=== PATIENT | male | born 1975 | race Caucasian/White ===

== ENCOUNTER → 2021-07-22 10:27 | Outpatient (BNVA) | payer OTHER, SELFPAY | PROVIDERS: Family Provider Nurse Practitioner Family; PCP Family Medicine; Visit Provider Family Medicine | DX: I10 Essential (primary) hypertension (principal); Z13.220 Encounter for screening for lipoid disorders; Z13.6 Encounter for screening for cardiovascular disorders; D69.9 Hemorrhagic condition, unspecified; Z11.4 Encounter for screening for human immunodeficiency virus [HIV]; Z11.59 Encounter for screening for other viral diseases; Z76.89 Persons encountering health services in other specified circumstances | CPT/HCPCS: 80053; 80061; 85025; 86705; 86706; 86803; 87340; 87806 ==

== ENCOUNTER → 2022-05-29 10:56 | Outpatient (BNVA) | payer OTHER, SELFPAY | PROVIDERS: Family Provider Nurse Practitioner Family; PCP Family Medicine; Visit Provider Emergency Medicine | DX: M16.0 Bilateral primary osteoarthritis of hip (principal); G89.29 Other chronic pain | CPT/HCPCS: 73502 ==

== ENCOUNTER → 2022-09-18 07:53 | Outpatient (BNVA) | payer OTHER, SELFPAY | PROVIDERS: Family Provider Nurse Practitioner Family; PCP Family Medicine; Visit Provider Student in an Organized Health Care Education/Training Program | DX: M25.552 Pain in left hip (principal); G89.29 Other chronic pain; Z71.89 Other specified counseling | CPT/HCPCS: 77002 ==

== ENCOUNTER → 2022-10-15 08:51 | Outpatient (BNVA) | payer OTHER, SELFPAY | PROVIDERS: Family Provider Nurse Practitioner Family; PCP Family Medicine; Visit Provider Student in an Organized Health Care Education/Training Program | DX: M17.0 Bilateral primary osteoarthritis of knee | CPT/HCPCS: 73560; 73565 ==

== ENCOUNTER 2022-11-11 14:57 | Outpatient (CLI) | payer OTHER, SELFPAY | END 2022-11-11 14:58 | disposition home or self-care (01) | LOC: SPT 14:58 | PROVIDERS: Family Provider Nurse Practitioner Family; PCP Family Medicine; Visit Provider Student in an Organized Health Care Education/Training Program | DX: Z46.89 Encounter for fitting and adjustment of other specified devices (principal); M25.561 Pain in right knee; M25.562 Pain in left knee | CPT/HCPCS: 97760; L1851 ==

== ENCOUNTER → 2022-12-10 09:41 | Outpatient (BNVA) | payer OTHER, SELFPAY | PROVIDERS: Family Provider Nurse Practitioner Family; PCP Family Medicine; Visit Provider Physician Assistant | DX: M16.12 Unilateral primary osteoarthritis, left hip | CPT/HCPCS: 73502 ==

== ENCOUNTER → 2023-02-19 08:38 | Outpatient (BNVA) | payer OTHER, SELFPAY | PROVIDERS: Family Provider Nurse Practitioner Family; PCP Family Medicine; Visit Provider Student in an Organized Health Care Education/Training Program | DX: M25.552 Pain in left hip (principal); G89.29 Other chronic pain; Z71.89 Other specified counseling | CPT/HCPCS: 77002 ==

== ENCOUNTER → 2023-04-08 09:55 | Outpatient (BNVA) | payer OTHER, SELFPAY | PROVIDERS: Family Provider Nurse Practitioner Family; PCP Family Medicine; Visit Provider Student in an Organized Health Care Education/Training Program | DX: M17.0 Bilateral primary osteoarthritis of knee | CPT/HCPCS: 73560; 73565 ==

== ENCOUNTER 2023-04-08 14:16 | Outpatient (CLI) | payer OTHER, SELFPAY | END 2023-04-08 14:17 | disposition home or self-care (01) | LOC: SPT 14:16 | PROVIDERS: Family Provider Nurse Practitioner Family; PCP Family Medicine; Visit Provider Student in an Organized Health Care Education/Training Program | DX: Z46.89 Encounter for fitting and adjustment of other specified devices (principal); M17.11 Unilateral primary osteoarthritis, right knee; M17.12 Unilateral primary osteoarthritis, left knee | CPT/HCPCS: 97760; L1812 ==

== ENCOUNTER → 2023-07-02 09:00 | Outpatient (BNVA) | payer OTHER, SELFPAY | PROVIDERS: Family Provider Nurse Practitioner Family; PCP Family Medicine; Visit Provider Student in an Organized Health Care Education/Training Program | DX: M16.12 Unilateral primary osteoarthritis, left hip (principal); M25.551 Pain in right hip | CPT/HCPCS: 73502; 77002 ==

== ENCOUNTER → 2023-11-04 09:51 | Outpatient (BNVA) | payer OTHER, SELFPAY | PROVIDERS: Family Provider Nurse Practitioner Family; PCP Family Medicine; Visit Provider Student in an Organized Health Care Education/Training Program | DX: M25.551 Pain in right hip (principal); M16.12 Unilateral primary osteoarthritis, left hip | CPT/HCPCS: 73523 ==

== ENCOUNTER 2023-12-06 10:28 | Outpatient (CLI) | payer OTHER, SELFPAY ==
[2023-12-06 10:47] LABS: Basophils # 0.1 10^3/uL (0.0-0.1); Eosinophils # 0.1 10^3/uL (0.0-0.8); Eosinophils % 1.4 %; Hematocrit 46.1 % (37-53); Lymphocytes # 1.8 10^3/uL (0.8-4.8); Mean Corpuscular HGB Conc 34.3 g/dL (30-55); Mean Corpuscular Hemoglobin 31.7 pg (27-33); Mean Corpuscular Volume 92.4 fl (82-101); Mean Platelet Volume 10.6 fL (7.4-10.4); Monocytes # 0.6 10^3/uL (0.2-0.9); Monocytes % 8.7 %; Neutrophils # 4.48 10^3/uL (1.8-7.7); Neutrophils % 63.5 %; Nucleated Red Blood Cells % 0 %; Platelet Count 269 10^3/cmm (157-399); Red Blood Count 4.99 10^6/uL (3.85-5.65); Red Cell Distribution Width 11.7 % (12.1-15.1); White Blood Count 7.05 10^3/uL (3.29-11.43)
[2023-12-06 11:03] LABS: Alanine Aminotransferase 48 U/L (0-41); Albumin Level 4.2 g/dL (3.5-5.2); Alkaline Phosphatase 75 U/L (40-130); Anion Gap 14.3 (5-19); Aspartate Amino Transferase 22 U/L (0-40); Blood Urea Nitrogen 13 mg/dL (6-20); Calcium 9.3 mg/dL (8.5-10.5); Carbon Dioxide 24 mmol/L (22-29); Chloride 101 mmol/L (98-107); Globulin 2.4 g/dL (1.3-4.6); Glomerular Filtration Rate 90.8 mL/min (90-130); Glucose 129 mg/dL (65-115); Osmolality Calculated 282 mOsm/kg (285-295); Potassium 4.3 mmol/L (3.5-5.1); Sodium 135 mmol/L (136-145); Total Bilirubin 0.4 mg/dL (0.15-1.2); Total Protein 6.6 g/dL (6.6-8.7)
== END 2023-12-06 10:29 | disposition home or self-care (01) ==
LOC: LAB 10:32
PROVIDERS: Family Provider Nurse Practitioner Family; PCP Family Medicine; Visit Provider Student in an Organized Health Care Education/Training Program
DX: Z01.818 Encounter for other preprocedural examination (principal)
CPT/HCPCS: 36415; 80053; 85025

== ENCOUNTER 2023-12-13 12:55 | Outpatient (CLI) | payer OTHER, SELFPAY ==
--- NOTE | 2023-12-13 13:00 | CT_ITS ---
WS: [id number] CT LEFT hip, noncontrast HISTORY: LEFT TOTAL HIP ARTHROPLASTY TECHNIQUE: Protocol for [facility] total hip replacement has been obtained. DLP: 853.72 mGy COMPARISON: None available. No destructive bone lesions. Mild narrowing of the hip joints bilaterally. Suspect mild bilateral CAM deformities and mild osteophytic ridging around the acetabulum. Normal alignment at the knee joints. No destructive bone process. No significant effusions. CT/CT hip [facility] [id number] IMPRESSION: CT imaging provided for [facility] robotic total LEFT hip replacement.
== END 2023-12-13 12:56 | disposition home or self-care (01) ==
LOC: RAD 12:56
PROVIDERS: Family Provider Nurse Practitioner Family; PCP Family Medicine; Visit Provider Student in an Organized Health Care Education/Training Program
DX: Z01.818 Encounter for other preprocedural examination (principal); M16.12 Unilateral primary osteoarthritis, left hip
CPT/HCPCS: 73700; 81003

== ENCOUNTER 2023-12-27 11:07 | Observation (INO) | payer OTHER, SELFPAY ==
[2023-12-27] VITALS (20 sets, daily range): BP systolic 103–154; BP diastolic 60–107; PULSE 58–77; RESP 14–18; TEMP 36.1–36.5; O2SAT 93–99; BMI 38.6; BMI 37.6
[2023-12-27] MEDS: lactated ringers 500 ML IV (06:24)
--- NOTE | 2023-12-27 06:37 | ANES.PREANE2 ---
Pre-Anesthetic Assessment Height/Weight: Height 1.85 m Weight 132.903 kg Temp Pulse Resp BP Pulse Ox O2 Del Method 97 F L 60 18 154/107 96 Room Air 12/27/23 06:03 12/27/23 06:03 12/27/23 06:03 12/27/23 06:03 12/27/23 06:03 12/27/23 06:03 Operation Date: 12/27/23 07:00 Proposed Procedures p Toni Robot Total Hip Arthroplasty posterior approach(Left) - Freddy Hardy DO Familial anesthetic complications: Panic attack upon awakening Was Beta Cydney taken within 24 hours: N/A Was Clonidine taken within 24 hours: N/A Last intake: Intake Last Liquid Date 12/26/23 Last Liquid Time 23:00 Last Solid Date 12/26/23 Last Solid Time 21:00 Social No alcohol and No tobacco former smoker Exam alert, oriented x 3, clear to auscultation bilaterally and regular rate & rhythm Airway Mallampati: Class IV Dentition: other (no teeth) CV/HEM Hypertension Metabolic Morbid Obesity Anesthetic Plan ASA status: 3 Anesthesia: Regional (specify below) (spinal) Risk of > 500 ml blood loss (7ml/kg in children): Yes, adequate IV access and fluids planned Medications/Allergies Home Medications Medication Instructions Recorded Confirmed Last Taken Type Professor Of Biology Brace #2 ea 10/15/22 11/04/23 Unknown Rx rtgkpph-ciibhyzklxqqb-emwrxuen 250 4 tab PO Q6H PRN Headache 02/23/23 12/24/23 12/21/23 History mg-250 mg-65 mg tablet (Excedrin Migraine) economy knee braces bilateral #1 ea 04/08/23 11/04/23 Unknown Rx Allergies Allergy/AdvReac Type Severity Reaction Status Date / Time No Known Allergies Allergy Verified 12/24/23 09:02 [facility] Anesthesia Medical History Smoking Chronic left hip pain COVID Hypertension Surgical History History of sinus surgery No pertinent past surgical history Family History Father CAD (coronary artery disease) Diabetes Grandmother Stroke Social History Smoking and tobacco/nicotine status: current every day tobacco/nicotine user Alcohol intake: former Substance/Drug Use: never Adopted: No Data Anesthesia Cardiac Studies: No Data to Display
[2023-12-27] MEDS: scopolamine 1.5 Patch 1 PATCH TRANSDERMA (06:40)
[2023-12-27] MEDS: ketorolac 30 mg/mL INJ IVP (06:40)
[2023-12-27] MEDS: acetaminophen 1,000 MG/100 ML PIGGYBACK 400 MG IV ×3 (06:41→20:21)
--- NOTE | 2023-12-27 06:58 | W.PM.OPSFHP ---
Same Day Surgery H&P Indication for Procedure/HPI DATE OF PROCEDURE: December 27, 2023 CHIEF COMPLAINT/INDICATIONFOR SURGICAL PROCEDURE: Left hip DJD PREOP DIAGNOSIS: Left hip DJD PLANNED PROCEDURE: Operation Date: 12/27/23 07:00 Proposed Procedures p Toni Robot Total Hip Arthroplasty posterior approach(Left) - Freddy Hardy DO Medications/Allergies* Home Medications Medication Instructions Recorded Confirmed Type skdwssq-wvtulqujmqtso-ocqxrqce 250 4 tab PO Q6H PRN Headache 02/23/23 12/24/23 History mg-250 mg-65 mg tablet (Excedrin Migraine) Allergies/Adverse Reactions Allergy/AdvReac Type Severity Reaction Status Date / Time No Known Allergies Allergy Verified 12/24/23 09:02 Pertinent History/Comorbid Conditions* Medical History (Updated 07/02/23 @ 09:32 by Freddy Haryd DO) Smoking Chronic left hip pain COVID Hypertension Surgical History (Updated 07/22/21 @ 10:20 by Marian Jamison MD) History of sinus surgery No pertinent past surgical history Family History (Updated 07/22/21 @ 09:38 by Grazyna Chun CMA) Diabetes Father CAD (coronary artery disease) Father Stroke Grandmother Social History Smoking and tobacco/nicotine status: current every day tobacco/nicotine user Alcohol intake: former Substance/Drug Use: never Adopted: No Pertinent Exam Findings alert, oriented x 3, operative site marked and procedure specific exam findings Please refer to detailed orthopedic examination on 11/04/2023: Left hip exam: Pain with hip flexion and internal rotation IR less than 5 degrees ER 10 degrees Tenderness to palpation of the groin. Tenderness to palpation over the lateral trochanter. Able to perform straight leg raise, negative straight leg raise test Able to flex and extend knee with normal range of motion no tenderness to palpation. Recommendations Surgery/Procedure today Other Plans: Patient is here today as clear the preoperative clearance process and ready proceed with a left total hip arthroplasty Toni robotic assisted plan through a posterior approach. He underwent the preoperative process and cleared. Patient understands the ins and outs of the procedure, the risk benefits complication alternatives of surgery and through shared decision-making elects proceed with surgical intervention. All questions answered at this time. Will proceed with surgery today. Coding Level of Care Code Acute Code for [facility] Fwd
[2023-12-27] MEDS: sodium chloride 0.9% 1,000 ML 30 ML IV (07:00)
[2023-12-27] MEDS: ceFAZolin 3,000 MG in sodium chloride 0.9% (plus) 100 ML 200 MG IV (07:00)
[2023-12-27 07:02] LABS: Basophils # 0.1 10^3/uL (0.0-0.1); Eosinophils # 0.2 10^3/uL (0.0-0.8); Eosinophils % 2.2 %; Hematocrit 45.5 % (37-53); Lymphocytes # 2.3 10^3/uL (0.8-4.8); Lymphocytes % 33.4 %; Mean Corpuscular HGB Conc 33.6 g/dL (30-55); Mean Corpuscular Hemoglobin 31.9 pg (27-33); Mean Platelet Volume 10.8 fL (7.4-10.4); Monocytes # 0.7 10^3/uL (0.2-0.9); Monocytes % 10.3 %; Neutrophils # 3.55 10^3/uL (1.8-7.7); Neutrophils % 52.8 %; Nucleated Red Blood Cells % 0 %; Platelet Count 270 10^3/cmm (157-399); Red Blood Count 4.79 10^6/uL (3.85-5.65); Red Cell Distribution Width 11.9 % (12.1-15.1); White Blood Count 6.73 10^3/uL (3.29-11.43)
[2023-12-27 07:11] LABS: Anion Gap 12.5 (5-19); Blood Urea Nitrogen 13 mg/dL (6-20); Calcium 8.8 mg/dL (8.5-10.5); Carbon Dioxide 25 mmol/L (22-29); Chloride 104 mmol/L (98-107); Creatinine Clr Calc Pharmacy 145.0989; Glomerular Filtration Rate 90.4 mL/min (90-130); Glucose 133 mg/dL (65-115); Osmolality Calculated 286 mOsm/kg (285-295); Potassium 4.5 mmol/L (3.5-5.1); Sodium 137 mmol/L (136-145)
[2023-12-27] MEDS: tranexamic acid 1,000 mg/10mL SDV 1000 MG IV (07:49)
[2023-12-27] MEDS: vancomycin 1,000 MG SDV 2000 MG XX (08:32)
[2023-12-27] MEDS: ceFAZolin 2,000 mg SDV 3000 MG IVP (10:44)
--- NOTE | 2023-12-27 10:57 | W.PM.BPON ---
Date of Procedure: [December 27, 2023] Surgeon: [Dr. Hardy DO] Ross Lift Operator(s): [Darrian Hardy PA-C] Procedure(s) performed: [Left hip total arthroplasty with Toni robotic assist.] Findings of the procedure(s): [Left hip degenerative joint disease procedure went well and as planned] Estimated blood loss: [500 mL] Specimen(s) removed: [Femoral head] Post-operative diagnosis: [Left hip degenerative joint disease.]
--- NOTE | 2023-12-27 10:58 | PM.PACU ---
PACU note Narrative: Patient is a 48-year-old male that just underwent a left total hip arthroplasty. Pt transferred to PACU in stable condition. Dressing is dry. pt is awake and alert. pt can wiggle toes and plantarflex and dorsiflex foot. Distal pulses are palpable toes are warm and well-perfused. Cap refill is normal and under 2 seconds. Sensation to foot is intact. Pain is controlled. Exam: awake Disposition: admitted
--- NOTE | 2023-12-27 11:11 | XRR_ITS ---
PROCEDURE INFORMATION: Exam: XR Left Hip Exam date and time: 12/27/2023 11:15 AM Age: 48 years old Clinical indication: Device placement; Other: Left samia; Prior surgery; Surgery date: Post-operative (0-2 days); Additional info: Post op left samia, do in pacu TECHNIQUE: Imaging protocol: Radiologic exam of the left hip. Views: 2 or 3 views hip with pelvis when performed. COMPARISON: CT hip LT [facility] [id number] 12/13/2023 12:59 PM FINDINGS: Bones/joints: There are postoperative changes status post left hip replacement. Components appear to be in anatomic alignment. No fracture is noted. No dislocation is noted. Bony mineralization is normal. Soft tissues: Unremarkable. XR/XR hip LT 2-3V wo/w pel* [id number] IMPRESSION: 1. Postoperative changes status post left hip replacement.
--- NOTE | 2023-12-27 11:20 | PM.OP ---
Operative Report Date of procedure: December 27, 2023 Surgeon: Freddy Hardy DO Ammunition Storekeeper: Darrian Hardy PA-C: PA was necessary for assistance in this case with leg positioning, hip reductions, retraction and protection of neurovascular structures as well as assistance in implantation, wound closure, and dressing application. Procedure: Preop Diagnosis?Left hip degenerative joint disease Post-op diagnosis: Left hip degenerative joint disease Procedure done: Left total hip arthroplasty?robotic assisted Toni?posterior?approach Implants: [place] total hip arthroplasty implants 60 mm cluster hole acetabular shell 6.5 mm x (15mm) acetabular screw Alpha code G MDM cementless metal liner [place] Insignia Femoral stem size #6 high offset Alpha code MDM +4 mm head Surgeon: Freddy Hardy DO Estimated blood loss: 500 mL IV fluids: 1700 mL Urine output: 800 mL Complications: None Condition: stable Disposition: floor Brief History: Patient's been seen and worked up by myself in the outpatient setting and findings consistent with Left hip degenerative joint disease. pt has failed conservative treatment this is causing severe pain and decreased mobility. We talked about his treatment options as far as nonoperative and operative intervention. pt ultimately through shared decision-making would like to proceed with a Left total hip arthroplasty. we detailed out risk benefits complications alternatives to surgical and nonsurgical treatment options. Understanding pt risk for surgery pt elects to proceed with Left total hip arthroplasty robotic assisted Toni utilizing a?posterior?approach. All questions answered. pt elects proceed with surgery today and consent obtained in PACU. Procedure: Patient was seen evaluate in preoperative holding area.? Consent was reviewed and signed with patient.? Correct extremity was then marked.? Patient seen evaluate by anesthesia department once cleared for surgery pt was taken back to the operative suite.? Patient underwent spinal anesthesia per the anesthesia department.? This point time pt was then placed on the operative suite and table.? Pt was then placed in lateral decubitus patient worked with the Left hip up.? Patient was secured in the lateral decubitus position with pegboard. All bony prominences well-padded he was properly secured to the bed.? At this point time the Left lower extremity was then prepped and draped in standard orthopedic fashion with care not to drape out the iliac wing for pelvic array placement.? Final timeout performed.? Patient received appropriate preoperative antibiotics. Started off with establishment of my pelvic array pins.? A small longitudinal incision was made directly over the iliac wing.? Sharp scalpel excision through skin and subcutaneous tissue directly onto bone.? Next I then loaded my pelvic pin.? This was then drilled through the iliac wing corridor with excellent fixation.? Next I then loaded the guide which was placed directly onto bone and then subsequently placed 2 more pins to secure fixation.? Next the pelvic array was then sent had excellent visualization with the Toni robot and was secured. EKG pad was placed on the distal lateral aspect of the femur and sterile aseptic technique and use as my distal reference point. Next I proceeded with my standard?posterior?approach.? Sharp scalpel through skin and subcutaneous tissue this was centered over the greater trochanter.? I then utilized a Espino elevator over the gluteus joão fascia.? Next the fascia was then split longitudinally with bipolar electrocautery.? Next a Charnley retractor was then placed.? All bone was then placed into the abductors.? A standard full-thickness release of the piriformis and the short external rotators along with the capsule to grade 1 full thick sleeve for later repair was then placed straight down to the lesser trochanter.? Lesser trochanter was then subsequently identified.? Prior to dislocating the hip we then placed our greater trochanter femur checkpoint.? We marked our appropriate checkpoint for referencing on pelvic array.? At this point in time we then established both of our checkpoints as well as referencing for leg lengths I utilized the EKG pad as my distal reference point. The legs were marked and traced to have appropriate position on the drapes to allow for accurate reading.? Preoperative leg lengths set. Once this was then established I then proceeded with dislocation of the femoral head.? At this point Hohmann's were then placed superiorly and inferiorly along the femoral neck..? The sciatic nerve was protected throughout this case.? At this point time I then utilized the Toni robot and referencing point to reference different aspects along the femoral head and neck for my appropriate neck length.? These were referenced on the inferior mid substance as well as up into the superior shoulder of the femoral neck.? This marked my oscillating saw was used to make my femoral neck cut.? Femoral head was then removed. Next the leg was placed in appropriate position and my anterior and?posterior?acetabular retractors then placed.? Next I excised the labrum and then remove the pulvinar.? I did do a small release of the inferior capsule which was severely taut to allow for easier placement of my reamers as well as reduction.? Acetabulum was thoroughly irrigated. At this point in time keeping my retractors in place I subsequently loaded up the [employer] robot for my acetabular reaming.?? Next I then set my 60 reamer under the [employer] robot and subsequently held this with appropriate preplanned preop planned version of 40 degrees of abduction angle as well as 20 degrees of anteversion.? This preoperative plan was then subsequently made to accommodate for ranges of motion of impingement?that was assessed preoperatively utilizing the [employer] robotic software technology. The small adjustments of abduction and anteversion accommodated no anterior hip impingement with the hip flexed at 90 degrees. I then subsequently reamed this to the appropriate depth with 60 reamer.? We opened up the acetabular shell clusterhole of the 60 mm [place] this was then loaded onto my impacting system and then I subsequently impacted this to appropriate depth.? This was then removed from the robot and I used the Toni probe at the center to confirm on the CT scan?that this was down on bone which it was.? Next I then drilled and placed 1 acetabular screws with excellent fixation these were drilled and measured to be 15mm this was in the?posterior?superior aspect of the acetabulum had excellent bite and fixation.? The cup was solid and had excellent press-fit fixation. next, opened the alpha code G MDM cementless liner then subsequently placed in appropriate position and impacted into place.? I then placed a sponge into the acetabulum to protect the polyethylene while my femur preparation was performed.? At this point time I then utilized a small rongeur to clear off the shoulder of the femoral neck to clear out the soft tissue envelope for my box osteotome.? Next box osteotome was used a canal finder was placed as well as a lateral lysing rattail rasp.? Once I was appropriately lateralized I then sequentially broached up to a size 6 femoral stem.? This was impacted to appropriate depth and flushed with my femoral neck cut.? This point I loaded a high offset with +0mm neck and subsequently reduced the hip.? At this point in time the hip was taken through range of motion before evaluating with the robot on leg lengths.? Patient appeared to have room to increase on leg lengths clinically.? The hip was taken through range of motion and had excellent stability with hip flexion and internal rotation with no evidence of instability had an slightly increased shuck.? This point time utilized the Toni probe from our femur checkpoint down to her distal checkpoint. Satisfied with this trial implants, at this point I dislocated the hip and then called for my final implants with excellent stability in all planes.? Opened up a size 6 femoral insignia stem high offset.? My trials were then removed and then subsequently impacted my [place] Insign[employer] stem high offset to the same level.? This point in time I trialed up to a +4 mm neck length which helped match with Toni robotic assistance had appropriate leg lengths comparative to the contralateral hip and this was confirmed clinically as well as had excellent stability I felt as though this was best combination with leg lengths being equal as well as with stability and elected for the final +4 mm MDM femoral head. Final MDM femoral head component was then opened and the trunnion was dried and this was impacted with excellent fixation and the hip was subsequently reduced.? We measured our final leg lengths which were appropriate patient had excellent stability in all ranges of motion.? This point time a robotic pins and checkpoints were removed.? I remove the femur checkpoint as well as my pelvic array and iliac wing pins.? Appropriate counts were then made.? This point time thoroughly irrigated the wound bed with pulse lavage.? Vancomycin powder was then sprinkled into the wound bed.? I then performed a standard capsular and external rotator repair utilizing #5 Ethibond and this was tied and repaired through bone tunnels hip, sciatic nerve was protected throughout this portion of the case. Was then kept in abduction external rotation and subsequently closed the fascial layer with Ethibond suture as well as running strata fix suture.? I then closed the deep subcutaneous layer as well as superficial subcutaneous layer with running strata fix suture as well as 3-0strata fix for skin.? Prineo glue dressing was then placed over the skin.? I then irrigated the pelvic array pin site.? There is were then closed with interrupted 0, 2-0 vicryl suture and Monocryl as well as Prineo glue for the skin.? Incisions were then covered with maureen and Silverlon dressing.? Patient was awakened from anesthesia and taken to PACU in stable condition Disposition: Patient taken to PACU in stable condition.? Patient will receive appropriate discharge instructions as well as DVT prophylaxis and pain medication.? Patient will be admitted to the floor for observation should be evaluated by the internal medicine team for medical management.? Patient received appropriate DVT prophylaxis as well as pain medication PT/OT weightbearing as tolerated Left lower extremity with?posterior?hip precautions, Postoperative Abx and TXA.? We will follow-up with patient in the office in 2 weeks.? Patient understands agrees with current plan.? All questions answered.
--- NOTE | 2023-12-27 11:35 | ANE.PACU2 ---
Inpatient post-anesthesia follow up: Airway intact: Yes Vital signs: Temperature 97.5 F Pulse Rate 58 Respiratory Rate 17 Blood Pressure 137/81 Pulse Oximetry 95 Oxygen Delivery Me thod Room Air Oxygen Flow Rate 6 Fraction of Inspir ed Oxygen Hydration adequate: Yes Nausea and vomiting: No Pain level: 1 Mental status: Baseline
[2023-12-27] MEDS: lactated ringers 1,000 ML 100 ML IV (12:42)
[2023-12-27] MEDS: ketorolac 30 mg/mL INJ 15 MG IVP ×2 (12:43→20:29)
[2023-12-27] MEDS: chlorhexidine gluconate 0.12% Btl 473 mL 30 ML MUCOUS MEM ×3 (12:50→20:22)
[2023-12-27] MEDS: oxyCODONE 5 mg IR Tab/Cap PO ×2 (12:59→17:55)
[2023-12-27] MEDS: tranexamic acid 1,000 MG/100 ML PREMIX 600 MG IV (14:12)
[2023-12-27] MEDS: TRAMadol 50 mg Tablet PO (15:43)
[2023-12-27] MEDS: ceFAZolin 3,000 MG in sodium chloride 0.9% (100 ml) 100 ML 200 MG IV ×2 (15:45→22:43)
[2023-12-27] MEDS: calcium carb-vit d 600mg/400unit 1 Tablet 1 EACH PO (17:55)
[2023-12-27] MEDS: mupirocin oint 22 gm 1 APPLIC NASAL (17:55)
[2023-12-27] MEDS: iron polysaccharide complex 150 mg Capsule PO (17:55)
[2023-12-27] MEDS: sennosides-docusate Tablet 2 TAB PO (17:55)
[2023-12-28] VITALS (8 sets, daily range): BP systolic 112–148; BP diastolic 62–70; PULSE 69–83; RESP 16–20; TEMP 36.7–37.5; O2SAT 94–96
[2023-12-28] MEDS: oxyCODONE 5 mg IR Tab/Cap PO ×3 (01:38→12:25)
[2023-12-28] MEDS: acetaminophen 1,000 MG/100 ML PIGGYBACK 400 MG IV (03:35)
[2023-12-28] MEDS: ketorolac 30 mg/mL INJ 15 MG IVP (03:41)
[2023-12-28 05:57] LABS: Basophils % 0.4 %; Eosinophils # 0.1 10^3/uL (0.0-0.8); Eosinophils % 1.2 %; Hematocrit 34.1 % (37-53); Lymphocytes # 1.7 10^3/uL (0.8-4.8); Lymphocytes % 17.8 %; Mean Corpuscular HGB Conc 32.8 g/dL (30-55); Mean Corpuscular Hemoglobin 31.3 pg (27-33); Mean Corpuscular Volume 95.3 fl (82-101); Mean Platelet Volume 11.1 fL (7.4-10.4); Monocytes # 0.8 10^3/uL (0.2-0.9); Monocytes % 8.2 %; Neutrophils # 6.67 10^3/uL (1.8-7.7); Nucleated Red Blood Cells % 0 %; Platelet Count 243 10^3/cmm (157-399); Red Blood Count 3.58 10^6/uL (3.85-5.65); Red Cell Distribution Width 11.9 % (12.1-15.1); White Blood Count 9.27 10^3/uL (3.29-11.43)
[2023-12-28 06:13] LABS: Anion Gap 13.3 (5-19); Blood Urea Nitrogen 17 mg/dL (6-20); Calcium 8.3 mg/dL (8.5-10.5); Carbon Dioxide 24 mmol/L (22-29); Chloride 104 mmol/L (98-107); Creatinine Clr Calc Pharmacy 132.3716; Glomerular Filtration Rate 80.1 mL/min (90-130); Glucose 128 mg/dL (65-115); Osmolality Calculated 287 mOsm/kg (285-295); Potassium 4.3 mmol/L (3.5-5.1); Sodium 137 mmol/L (136-145)
[2023-12-28] MEDS: ceFAZolin 3,000 MG in sodium chloride 0.9% (100 ml) 100 ML 200 MG IV (06:14)
[2023-12-28] MEDS: aspirin 325 mg Tablet PO (07:47)
[2023-12-28] MEDS: multivitamin therapeutic Tablet 1 TAB PO (07:47)
[2023-12-28] MEDS: iron polysaccharide complex 150 mg Capsule PO (07:47)
[2023-12-28] MEDS: calcium carb-vit d 600mg/400unit 1 Tablet 1 EACH PO (07:47)
[2023-12-28] MEDS: sennosides-docusate Tablet 2 TAB PO (07:47)
[2023-12-28] MEDS: mupirocin oint 22 gm 1 APPLIC NASAL (07:50)
--- NOTE | 2023-12-28 10:00 | P.CONIM_ITS ---
Providers/Reason For Consult 2 Consulting Physician/Specialty*: Hospitalist Reason for Consult*: Postop care Attending Physician: Freddy Hardy DO Primary Care Provider: Marian Jamison MD History of Present Illness History of Present Illness Christopher Cervantes is a 48 year old male status post left hip arthroplasty, hospitalist service has been requested for postop management. 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, he endorses pain on exertion otherwise not at rest, hemodynamic stable after surgery, not requiring oxygen, afebrile Review of Systems 2 Const: Denies: fever(s) Eyes: Denies: change in vision ENMT: Denies: throat pain Musc: Reports: extremity pain Medications/Allergies Home Medications Medication Instructions Recorded Confirmed Last Taken Type Tripe Finisher Brace #2 ea 10/15/22 12/27/23 Unknown Rx ssrkqot-deseyhfteulij-jetdzusc 250 4 tab PO Q6H PRN Headache 02/23/23 12/24/23 12/21/23 History mg-250 mg-65 mg tablet (Excedrin Migraine) economy knee braces bilateral #1 ea 04/08/23 12/27/23 Unknown Rx Allergies Allergy/AdvReac Type Severity Reaction Status Date / Time No Known Allergies Allergy Verified 12/24/23 09:02 Current Medications Generic Name Dose Route Start Last Admin Trade Name Freq PRN Reason Stop Dose Admin Chlorhexidine Gluconate 30 ml 12/27/23 13:00 12/27/23 12:50 Chlorhexidine Gluconate 0.12% Btl 473 Ml MUCOUS MEM 30 ml QID ANKITA Administration Lactated Ringer's 1,000 mls @ 100 mls/hr 12/27/23 11:55 12/27/23 12:42 Lactated Ringers IV 100 mls/hr .Q10H ANKITA Administration Acetaminophen 1,000 mg in 100 mls @ 400 mls/hr 12/27/23 11:55 12/27/23 13:04 Acetaminophen IV 12/28/23 04:09 Infused Q8H ANKITA Infusion Ketorolac Tromethamine 15 mg 12/27/23 11:55 12/27/23 12:43 Ketorolac 30 Mg/Ml Inj IVP 15 mg Q6H PRN Administration MODERATE TO SEVERE PAIN Oxycodone HCl 5 mg 12/27/23 11:55 12/27/23 12:59 Oxycodone 5 Mg Ir Tab/Cap PO 5 mg Q4H PRN Administration MODERATE PAIN PFSH Acute 2 PFSH: Medical History Smoking Chronic left hip pain COVID Hypertension Surgical History History of sinus surgery No pertinent past surgical history Family History Father CAD (coronary artery disease) Diabetes Grandmother Stroke Social History Smoking and tobacco/nicotine status: current every day tobacco/nicotine user Alcohol intake: former Substance/Drug Use: never Adopted: No Vitals/I&O/Wt Last Vital Signs Temp 97.5 F L 12/27/23 11:55 Pulse 58 L 12/27/23 12:45 Resp 17 12/27/23 12:59 BP 137/81 12/27/23 12:45 Pulse Ox 95 12/27/23 12:45 O2 Del Method Room Air 12/27/23 12:45 O2 Flow Rate 6 12/27/23 11:15 12/27/23 12/27/23 12/27/23 06:59 14:59 22:59 Intake Total 100 / 100 3030 / 3030 Output Total 1300 / 1300 Balance 100 / 100 1730 / 1730 Weight last 48 hrs Weight 132.903 kg Weight 132.903 kg Physical Exam 2 Narrative: Awake and alert GCS 15 Pleasant Hemodynamically stable Morbidly obese Nonfocal neuroexam Urinary Catheter Management: Smith: Cath Placed During This Visit: yes Urinary Catheter Date of Insertion: 12/27/23 Urinary Catheter Time of Insertion: 07:22 Data 12/28/23 05:28 12/28/23 05:28 A&P Assessment and plan (1) Chronic left hip pain: (2) S/P total hip arthroplasty: Plan Hip arthroplasty Postop management Postop day 1 Patient is doing well, not requiring oxygen Afebrile Hemoglobin stable To prevent opioid-induced constipation Continue bowel regimen For DVT prophylaxis he is on therapeutic aspirin dose Full code After evaluation with PT further disposition plan will be made, patient is anticipating going home today I have told him that he has to wait for Dr. Hardy's assessment evaluation today Consult Attestations 2 Medical Necessity Statement: As per orthopedics Diagnoses Chronic left hip pain M25.552; G89.29 S/P total hip arthroplasty Z96.649
--- NOTE | 2023-12-28 10:23 | PC.CHAP ---
Pastoral Care Encounter/Spiritual Assessment Type of Contact [] Declined shuttle filler visit [] Patient/Family/Request visit [] Outpatient visit [] Follow-up visit [] Physician referral [] Code/Alert [x] Routine visit [] Staff referral [] Actively dying [] Patient sleeping [] Family support [] [] Out of room [] Palliative care [] [] Receiving care in room [] Pre-surgical visit [] Trauma [] Long length of stay [] ICU visit [] Other: Relational/Emotional Strength [x] Patient feels connected with others/family/visitors/staff [] Distress [] Loneliness/isolation [] Abandonment Spirituality of Patient [x] Person of Blanka [] Attends Cheondoism of their Blanka [x] Believes in Prayer [] Reads Bible or Cheondoism materials [] There are Spiritual issues to be addressed Band Cutter Interventions [x] Prayer [x] Active listening [] Non-anxious presence [x] Spiritual/emotional support [] Crisis/trauma care [] Spiritual counseling [] Bereavement support [] Provided bereavement packet [] Provided Bible/devotional materials [] Provided toy/stuffed animal, coloring book to patient or family member [] Provided Communion [] Anointing/[place] [] Salvation [x] Completed spiritual assessment [] Other: Impact on Illness or Injury [] Angry [] Fearful [] Anxious [] Often cries [] Exhaustion [] Unable to work [] Unable to attend sikh [] Unable to walk/stand [] Unable to read [] Unable to drive [] Unable to eat/drink [] Unable to sleep [] Unable to be with family [] Patient intubated [] Other: Summary Time spent with patient 5 min
--- NOTE | 2023-12-28 12:14 | P.DS_ITS ---
Discharge Providers Date of Admission: 12/27/23 11:07 Date of Discharge: December 28, 2023 Attending Provider at Admission: Freddy Hardy DO Attending Provider at Discharge: Freddy Hardy DO Consults: Hospitalist?Dr. 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 Once cleared by anesthesia for surgery subsequently was taken back to the operative suite underwent anesthesia per the anesthesia department and then underwent [left] total hip arthroplasty with Toni robotic assistance posterior approach without any complications. Patient was then subsequently taken back to PACU in stable condition recovering well. Once recovered, patient was then subsequently admitted to the floor postoperatively. Internal medicine was consulted for medical management assistance. Patient weightbearing as tolerated to the operative lower extremity, posterior hip precautions. PT/OT. Pain control. DVT prophylaxis. Postoperative antibiotics and TXA. dressing was change as needed. Internal medicine was on board and appreciate their medical management and assistance. Pt was determined on postoperative day [1] the patient was stable for discharge from orthopedic as well as internal medicine standpoint. Patient's labs were monitored daily. Patient will receive appropriate pain medication as well as DVT prophylaxis postoperatively. Appropriate discharge instructions as well. Patient was then discharged in stable condition. Patient will discharge home. Pt will follow-up with Orthopedics in the office in 2 weeks. Patient understands and agrees with current plan. All questions answered. Understands there is any issues or concerns and contact the office. Physical Exam Narrative: Examination of the left hip demonstrates dressings on in place clean dry and intact, patient able to tolerate logroll examination as well as able to wiggle toes plantarflex and dorsiflex ankle sensations intact to light touch distally. Distal pulses are palpable toes are warm and well-perfused compartments are soft compressible normal postoperative tenderness palpation of the left hip as well as swelling on the postoperatively appreciated. Urinary Catheter Management: Smith: Cath Placed During This Visit: yes, but has since been removed by the nurse Reason for Continuing Indwelling Catheter: Perioperative Use in Selected Surgeries Urinary Catheter Date of Insertion: 12/27/23 Urinary Catheter Time of Insertion: 07:22 Date Urinary Catheter Removed: 12/28/23 Time Urinary Catheter Discontinued: 05:00 Discharge Data Studies Completed and Pending Completed Studies During Hospitalization Category Date Time Status XR hip LT 2-3V wo/w pel* [id number] Routine Exams 12/27/23 11:11 Completed Pending at discharge Category Date Time Status Basic Metabolic Panel AM LABS Lab 12/29/23 04:00 Ordered Basic Metabolic Panel AM LABS Lab 12/30/23 04:00 Ordered Complete Blood Count w/Auto AM LABS Lab 12/29/23 04:00 Ordered Complete Blood Count w/Auto AM LABS Lab 12/30/23 04:00 Ordered Radiology Impressions Hip/Pelvis X-Ray 12/27/23 11:11 IMPRESSION: 1. Postoperative changes status post left hip replacement. Laboratory Results WBC 9.27 10^3/uL (3.29-11.43) 12/28/23 05:28 RBC 3.58 10^6/uL (3.85-5.65) L 12/28/23 05:28 Hgb 11.20 g/dL (11.27-16.99) L 12/28/23 05:28 Hct 34.1 % (37-53) L 12/28/23 05:28 MCV 95.3 fl (82-101) 12/28/23 05:28 MCH 31.3 pg (27-33) 12/28/23 05:28 MCHC 32.8 g/dL (30-55) 12/28/23 05:28 RDW 11.9 % (12.1-15.1) L 12/28/23 05:28 Plt Count 243 10^3/cmm (157-399) 12/28/23 05:28 MPV 11.1 fL (7.4-10.4) H 12/28/23 05:28 Neut % (Auto) 72.0 % 12/28/23 05:28 Lymph % (Auto) 17.8 % 12/28/23 05:28 Emmons % (Auto) 8.2 % 12/28/23 05:28 Eos % (Auto) 1.2 % 12/28/23 05:28 Baso % (Auto) 0.4 % 12/28/23 05:28 Neut # (Auto) 6.67 10^3/uL (1.8-7.7) 12/28/23 05:28 Lymph # (Auto) 1.7 10^3/uL (0.8-4.8) 12/28/23 05:28 Emmons # (Auto) 0.8 10^3/uL (0.2-0.9) 12/28/23 05:28 Eos # (Auto) 0.1 10^3/uL (0.0-0.8) 12/28/23 05:28 Baso # (Auto) 0.0 10^3/uL (0.0-0.1) 12/28/23 05:28 Nucleated RBC % (auto) 0 % 12/28/23 05:28 Nucleated RBCs # 0.0 /100WBC 12/28/23 05:28 Sodium 137 mmol/L (136-145) 12/28/23 05:28 Potassium 4.3 mmol/L (3.5-5.1) 12/28/23 05:28 Chloride 104 mmol/L (98-107) 12/28/23 05:28 Carbon Dioxide 24 mmol/L (22-29) 12/28/23 05:28 Anion Gap 13.3 (5-19) 12/28/23 05:28 BUN 17 mg/dL (6-20) 12/28/23 05:28 Creatinine 1.0 mg/dL (0.7-1.2) 12/28/23 05:28 GFR Calculation 80.1 mL/min (90-130) L 12/28/23 05:28 Glucose 128 mg/dL (65-115) H 12/28/23 05:28 Calculated Osmolality 287 mOsm/kg (285-295) 12/28/23 05:28 Calcium 8.3 mg/dL (8.5-10.5) L 12/28/23 05:28 Blood Type AB Negative 12/27/23 06:13 Rho(D) Type Rh negative 12/27/23 06:13 Antibody Screen Negative 12/27/23 06:13 Vitals Last Vital Signs Temp 98.2 F 12/28/23 11:23 Pulse 83 12/28/23 11:23 Resp 20 H 12/28/23 11:23 BP 148/67 12/28/23 11:23 Pulse Ox 96 12/28/23 11:23 O2 Del Method Room Air 12/28/23 11:23 O2 Flow Rate 6 12/27/23 11:15 Discharge Plan Discharge Patient Disposition: Home Condition: Stable Prescriptions: New aspirin 325 mg tablet 325 mg PO BID 35 Days Qty: 70 0RF calcium carbonate-vitamin D3 [Calcium 600 + D(3)] 600 mg-10 mcg (400 unit) tablet 1 tab PO DAILY 30 Days Qty: 30 0RF Held Excedrin Migraine 250-250-65 mg tablet 4 tab PO Q6H PRN (Reason: Headache) Hold Instructions: Resume on 01/11/24. No Action (DME) economy knee braces bilateral See Rx Instructions .Route .MEDSUPPLY Qty: 1 0RF Rx Instructions: As directed oxycodone 5 mg tablet 5 mg PO TID PRN (Reason: pain) 7 Days Qty: 21 0RF (DME) Clerical Dentist Assistant Brace See Rx Instructions .Route .MEDSUPPLY Qty: 2 0RF Rx Instructions: As directed Discharge Orders: Discharge Order (Routine); Ordered 12/28/23 Ordered By: Freddy Hardy Other Ambulatory Orders: DME: Walker (Order) Location: None Selected Ordered By: Freddy Hardy Physical Therapy Eval and Treat Outpatient (Order) Timeframe: 3 Days Facility: [facility] - Location: Physical Therapy Ordered By: Freddy Hardy Referrals: [facility] [Outside] (We have notified the clinic of the need for a follow-up appointment to be scheduled for outpatient physical therapy. If you have not heard from them within the next 2 business days, please call them directly. ) Freddy Hardy DO [Physician] - 01/11/24 11:00 am Marian Jamison MD [Primary Care Provider] - (We have notified your physician's clinic of the need for a follow-up appointment to be scheduled. If you have not heard from them within the next 2 business days, please call them directly. ) Discharge Diet: Regular Discharge Activity: Limit activity as instructed Patient Instructions: Aspirin (By mouth), Methocarbamol (By mouth), Oxycodone, Rapid Release (By mouth), Acute Wound Care (DC), Total Hip Replacement (GEN), Joint Replacement Stoplight, Post Anesthesia Care Activity Restrictions/Additional Instructions: Orthopedic discharge instructions: Mango Dressing--Keep dressing on and dry. After 3 days you can remove some of the dressing and shower. disconnect battery pack when showering. Mango dressing will stay on until follow up appt in 2 weeks. The battery pack for the dressing will at 5-7 days. Battery pack can be removed and discarded once batteries . Patient should keep dressings clean dry and intact Okay to shower over dressings if they do become wet these should be removed and new dressings applied Keep incisions clean dry and intact, leave Silverlon bandage dressings on in place for 7 days after that may rinse incisions with warm soapy water pat dry and redress with a dry dressing Weight-bear as tolerated to operative lower extremity Posterior hip precautions as instructed by physical therapy(no flexion past 90 degrees, avoid internal rotation and hip adduction, do not cross legs past midline) Ice as needed for pain and swelling Take pain medication as prescribed Take antinausea medication as needed Supplement with Citracal vitamin D for bone health and healing Pain medication can cause constipation. take [id number] stool softeners and or MiraLAX. Take blood thinner as prescribed aspirin twice daily. Follow-up in the orthopedic office in 2 weeks Contact the office for any questions or concerns Discharge Attestations Time Spent in Discharge Care*: less than 30 min Quality Metrics Clinical Quality Measures [ No reported AMI, CVA or VTE this stay] Coding Level of Care Code Acute Code for Chg Fwd Diagnoses Chronic left hip pain M25.552; G89.29 S/P total hip arthroplasty Z96.649
== END 2023-12-28 14:21 | disposition home or self-care (01) ==
LOC: MEDSURG 11:08
PROVIDERS: Physician Assistant; Admitting Provider Student in an Organized Health Care Education/Training Program; Family Provider Nurse Practitioner Family; PCP Family Medicine; Visit Provider Student in an Organized Health Care Education/Training Program
PROC: 8E0Y0CZ Robotic Assisted Procedure of Lower Extremity, Open Approach (ICD-10-PCS; CPT 27130; principal; 2023-12-27 07:00)
DX: M16.12 Unilateral primary osteoarthritis, left hip (principal); Z87.891 Personal history of nicotine dependence; I10 Essential (primary) hypertension; E66.01 Morbid (severe) obesity due to excess calories; Z68.39 Body mass index [BMI] 39.0-39.9, adult
CPT/HCPCS: 20985; 27130; 36415; 51702; 73502; 80048; 85025; 86850; 86900; 97110; 97116; 97161; 97166; 97530; C1713; C1776; G0378; J0131; J0690; J1885; J2250; J2704; J3010; J3370; J7030; J7120

== ENCOUNTER → 2024-01-05 13:37 | Outpatient (BNVA) | payer OTHER, SELFPAY | PROVIDERS: Family Provider Nurse Practitioner Family; PCP Family Medicine; Visit Provider Family Medicine | DX: M54.16 Radiculopathy, lumbar region (principal); M25.551 Pain in right hip; M54.50 Low back pain, unspecified; M19.90 Unspecified osteoarthritis, unspecified site; M16.11 Unilateral primary osteoarthritis, right hip | CPT/HCPCS: 72100; 73502 ==

== ENCOUNTER → 2024-01-12 11:04 | Outpatient (BNVA) | payer OTHER, SELFPAY | PROVIDERS: Family Provider Nurse Practitioner Family; PCP Family Medicine; Visit Provider Physician Assistant | DX: Z96.642 Presence of left artificial hip joint (principal) | CPT/HCPCS: 73502 ==

== ENCOUNTER → 2024-02-24 11:11 | Outpatient (BNVA) | payer OTHER, SELFPAY | PROVIDERS: Family Provider Nurse Practitioner Family; PCP Family Medicine; Visit Provider Physician Assistant | DX: Z96.642 Presence of left artificial hip joint (principal) | CPT/HCPCS: 73502 ==

== ENCOUNTER → 2024-06-21 11:03 | Outpatient (BNVA) | payer OTHER, SELFPAY | PROVIDERS: Family Provider Nurse Practitioner Family; PCP Family Medicine; Visit Provider Student in an Organized Health Care Education/Training Program | DX: Z96.642 Presence of left artificial hip joint (principal) | CPT/HCPCS: 73502 ==

== ENCOUNTER → 2024-12-27 15:12 | Outpatient (BNVA) | payer OTHER, SELFPAY | PROVIDERS: Family Provider Nurse Practitioner Family; PCP Family Medicine; Visit Provider Student in an Organized Health Care Education/Training Program | DX: Z96.642 Presence of left artificial hip joint (principal); Z47.1 Aftercare following joint replacement surgery | CPT/HCPCS: 73502 ==